=== PATIENT | male | born 1995 | race Caucasian/White ===

== ENCOUNTER 2018-01-04 00:30 | Emergency (ER) | payer OTHER ==
[2018-01-04] MEDS: NS 1,000 ML IV (00:45)
[2018-01-04] MEDS: diphenhydrAMINE INJ 50MG/ML VIAL (J1200) IV (00:45)
[2018-01-04] MEDS: FAMOTIDINE INJ 20MG/2ML VIAL (S0028) IV (00:45)
[2018-01-04] MEDS: methylPREDNISolone INJ 125 MG/2 ML VIAL (J2930) IV (00:45)
== END 2018-01-04 02:12 | disposition home or self-care (01) ==
LOC: M ED 00:30
DX: L50.9 Urticaria, unspecified (principal); T78.40XA Allergy, unspecified, initial encounter; Y92.9 Unspecified place or not applicable; Y93.9 Activity, unspecified; R22.0 Localized swelling, mass and lump, head
CPT/HCPCS: J1200